=== PATIENT | male | born 1990 | race Caucasian/White ===

== ENCOUNTER 2016-11-11 20:10 | Observation (INO) | payer SELFPAY ==
[~2016-11-11] VITALS: Ht 180.3 cm; Wt 70.0 kg
[2016-11-11 19:50] VITALS: O2SAT 100
[2016-11-11] MEDS ORDERED: LORazepam 2 MG/ML VIAL ONE (20:29)
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
[2016-11-11 20:34] LABS: I-STAT POTASSIUM 3.7 MMOL/L (3.5-4.9)
[2016-11-11 20:38] LABS: AUTOMATED NEUTROPHIL # 5.1 TH/MM3 (1.8-7.7); BASOPHIL # 0.1 TH/MM3 (0-0.2); BASOPHIL % 0.8 % (0.0-2.0); EOSINOPHIL # 0.4 TH/MM3 (0-0.4); EOSINOPHIL % 4.2 % (0.0-4.0); HEMATOCRIT 41.5 % (39.0-51.0); HEMO FLAGS DIFF FINAL; LYMPH % 35.4 % (9.0-44.0); LYMPHOCYTE # 3.5 TH/MM3 (1.0-4.8); MEAN CELL VOLUME 91.4 FL (80.0-100.0); MEAN CORPUSCULAR HEMOGLOBIN 31.3 PG (27.0-34.0); MEAN CORPUSCULAR HGB CONC 34.3 % (32.0-36.0); MONO % 8.2 % (0.0-8.0); NEUT % 51.4 % (16.0-70.0); PLATELET COUNT 255 TH/MM3 (150-450); RED BLOOD COUNT 4.54 MIL/MM3 (4.50-5.90); RED CELL DISTRIBUTION WIDTH 12.7 % (11.6-17.2); WHITE BLOOD COUNT 9.9 TH/MM3 (4.0-11.0)
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
[2016-11-11] MEDS ORDERED: ceFAZolin 2 GM PREMIX 50 ML IV STA (20:42)
[2016-11-11] MEDS ORDERED: DIPHTH/TETANUS/ACEL PERTUSSIS (BOOSTER) 0.5 ML VIAL/PFS IM ONE (20:42)
[2016-11-11 20:43] LABS: APTT (PATIENT) 24.1 SEC (24.3-30.1)
[2016-11-11] MEDS ORDERED: SODIUM CHLOR 0.9% 1000 ML INJ 1,000 ML IV ONE (20:45)
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
[2016-11-11 22:04] VITALS: BP 131/70; PULSE 109; RESP 18; O2SAT 100
[2016-11-12] MEDS ORDERED: IOHEXOL 350 MG/ML 10 ML VIAL (for RAD DIAG) IV ONE (01:00)
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
[2016-11-12 01:36] VITALS: BP 128/79
== END 2016-11-12 01:36 | disposition home or self-care (01) ==
LOC: NEPI 20:10 → NEDA 21:04 → EDBD 21:04
PROVIDERS: ADMIT Surgery; ATTEND Surgery
DX: S09.90XA Unspecified injury of head, initial encounter (principal); V29.9XXA Motorcycle rider (driver) (passenger) injured in unspecified traffic accident, initial encounter; R40.2411 Glasgow coma scale score 13-15, in the field [EMT or ambulance]; S00.81XA Abrasion of other part of head, initial encounter; S50.312A Abrasion of left elbow, initial encounter; S50.311A Abrasion of right elbow, initial encounter; S50.812A Abrasion of left forearm, initial encounter; S50.811A Abrasion of right forearm, initial encounter; S80.212A Abrasion, left knee, initial encounter; S80.211A Abrasion, right knee, initial encounter; R06.02 Shortness of breath; Z78.1 Physical restraint status; F10.129 Alcohol abuse with intoxication, unspecified; Y90.2 Blood alcohol level of 40-59 mg/100 ml; Z23 Encounter for immunization
CPT/HCPCS: 70450; 71010; 72125; 74177; 80320; 82435; 82565; 82947; 84132; 84295; 84520; 85025; 85610; 85730; 86850; 86900; 86901; 90471; 90715; 96374; 96375; 99285; 99291; G0378; J2060; Q9967; G0390